=== PATIENT | female | born 1975 | race African-American/Black ===

== ENCOUNTER 2019-11-20 15:33 | Inpatient (IN) | payer OTHER ==
[~2019-11-20] VITALS: Ht 154.9 cm; Wt 120.2 kg
[2019-11-27] MEDS ORDERED: THIAMINE HCL100 MG PO (13:54)
[2019-11-27] MEDS ORDERED: FAMOTIDINE20 MG PO (13:54)
[2019-11-27] MEDS ORDERED: VITAMIN C500 M1 PO (13:54)
[2019-11-27] MEDS ORDERED: METFORMIN HCL500 M3 PO (13:54)
[2019-11-27] MEDS ORDERED: BENZONATATE100 MG PO (13:54)
[2019-11-27] MEDS ORDERED: PROVENTIL HFA6.7 GM IH (13:54)
[2019-11-27] MEDS ORDERED: MAXIMUM D3325 MCG PO (13:54)
== END 2019-11-27 16:40 | disposition home or self-care (01) | DRG 195 ==
LOC: ER 15:33 → MEDJ 11-21 09:32
PROVIDERS: ADMIT Internal Medicine
PROC: BB24ZZZ Computerized Tomography (CT Scan) of Bilateral Lungs (ICD-10-PCS; principal; 2019-11-21)
PROC: 8E0ZXY6 Isolation (ICD-10-PCS; 2019-11-21)
PROC: 3E0F7GC Introduction of Other Therapeutic Substance into Respiratory Tract, Via Natural or Artificial Opening (ICD-10-PCS; 2019-11-21)
DX: J18.1 Lobar pneumonia, unspecified organism (principal); E66.09 Other obesity due to excess calories; R50.9 Fever, unspecified; Z03.818 Encounter for observation for suspected exposure to other biological agents ruled out

== ENCOUNTER 2020-12-19 08:37 | Emergency (ER) | payer OTHER ==
[~2020-12-19] VITALS: Ht 152.4 cm; Wt 119.3 kg
[~2020-12-19 08:37] MED LIST: BENZONATATE100 MG PO; FAMOTIDINE20 MG PO; MAXIMUM D3325 MCG PO; METFORMIN HCL500 M3 PO; PROVENTIL HFA6.7 GM IH; THIAMINE HCL100 MG PO; VITAMIN C500 M1 PO
[2020-12-19] MEDS ORDERED: METFORMIN HCL1000 M3 PO (08:56)
[2020-12-19] MEDS ORDERED: COLCRYS0.6 MG PO (10:53)
[2020-12-19] MEDS ORDERED: INDOMETHACIN50 MG PO (10:53)
[2020-12-19] MEDS ORDERED: ULTRAM50 MG PO (11:13)
== END 2020-12-19 11:15 | disposition home or self-care (01) ==
LOC: ER 08:37
DX: M79.671 Pain in right foot (principal); M10.071 Idiopathic gout, right ankle and foot

== ENCOUNTER 2022-09-09 17:52 | Emergency (ER) | payer OTHER ==
[~2022-09-09] VITALS: Ht 154.9 cm; Wt 111.1 kg
[~2022-09-09 17:52] MED LIST changes: +COLCRYS0.6 MG PO; +INDOMETHACIN50 MG PO; +METFORMIN HCL1000 M3 PO; +ULTRAM50 MG PO
[2022-09-09] MEDS ORDERED: LOSARTAN POTASS50 MG PO (21:32)
== END 2022-09-09 21:45 | disposition home or self-care (01) ==
LOC: ER 17:52
DX: R10.32 Left lower quadrant pain (principal); I10 Essential (primary) hypertension; D27.0 Benign neoplasm of right ovary; K76.0 Fatty (change of) liver, not elsewhere classified

== ENCOUNTER 2023-02-28 19:53 | Emergency (ER) | payer OTHER ==
[~2023-02-28] VITALS: Ht 152.4 cm; Wt 122.5 kg
[~2023-02-28 19:53] MED LIST changes: +LOSARTAN POTASS50 MG PO
[2023-02-28] MEDS ORDERED: METFORMIN HCL500 MG (20:12)
== END 2023-02-28 21:57 | disposition home or self-care (01) ==
LOC: ER 19:53
DX: L02.811 Cutaneous abscess of head [any part, except face] (principal); E11.9 Type 2 diabetes mellitus without complications; Z79.84 Long term (current) use of oral hypoglycemic drugs; I10 Essential (primary) hypertension

== ENCOUNTER 2023-08-04 16:31 | Emergency (ER) | payer OTHER ==
[~2023-08-04] VITALS: Ht 152.4 cm; Wt 73.9 kg
[~2023-08-04 16:31] MED LIST changes: +METFORMIN HCL500 MG
== END 2023-08-04 17:52 | disposition home or self-care (01) ==
LOC: ER 16:32
DX: G44.209 Tension-type headache, unspecified, not intractable (principal)